=== PATIENT | male | born 1945 | race African-American/Black ===

== ENCOUNTER 2020-05-22 14:54 | Emergency (ER) | payer OTHER, MEDICAID ==
[~2020-05-22] VITALS: Ht 177.8 cm; Wt 102.0 kg
[~2020-05-22 14:54] MED LIST: ATOR20TA65 PO; LISI10TA5 PO; METF-414 PO
[2020-05-22] MEDS ORDERED: SODIUM CHLORIDE 0.9% 1,000 ML IV ONE (15:18)
[2020-05-22] MEDS ORDERED: BACITRACIN ZINC OINT UDPKT TOP ONE (15:30)
[2020-05-22 16:16] LABS: BASOPHILS % 0.9 % (0.0-2.0); EOSINOPHILS % 2.9 % (0.0-5.0); HEMATOCRIT. 36.2 % (42.0-52.0); HEMOGLOBIN. 12.4 g/dL (14.0-18.0); LYMPHOCYTES % 19.5 % (20.0-50.0); MEAN CORPUSCULAR HEMOGLOBIN 28.7 pg (28.0-32.0); MEAN CORPUSCULAR VOLUME 84.3 fL (80.0-94.0); MEAN PLATELET VOLUME 7.6 fl (7.4-10.4); MONOCYTES % 6.7 % (2.0-8.0); PLATELET 250 x1000/uL (130-400); RED CELL DISTRIBUTION WIDTH 14.1 % (11.6-14.6)
[2020-05-22 16:25] LABS: PROTHROMBIN TIME 10.3 sec (9.6-11.0)
[2020-05-22 16:28] LABS: CHLORIDE 110 mEq/L (98-107)
[2020-05-22 17:10] VITALS: BP 155/69
== END 2020-05-22 18:17 | disposition left against medical advice (07) ==
LOC: ER 14:54
DX: R55 Syncope and collapse (principal); E86.0 Dehydration; S00.01XA Abrasion of scalp, initial encounter; N28.9 Disorder of kidney and ureter, unspecified; E11.9 Type 2 diabetes mellitus without complications; I11.0 Hypertensive heart disease with heart failure; I50.9 Heart failure, unspecified; Z79.84 Long term (current) use of oral hypoglycemic drugs; W07.XXXA Fall from chair, initial encounter; Y93.89 Activity, other specified; Y92.017 Garden or yard in single-family (private) house as the place of occurrence of the external cause
CPT/HCPCS: 36415; 70450; 71045; 80053; 84484; 85025; 85610; 93005; 96360; 99285; J7030